=== PATIENT | female | born 1960 | race Caucasian/White ===

== ENCOUNTER 2022-10-28 10:34 | Emergency (ER) | payer MEDICAID ==
[~2022-10-28] VITALS: Ht 162.6 cm; Wt 68.0 kg
[2022-10-28 10:44] VITALS: BP 146/72; PULSE 93; RESP 18; TEMP 98.1; O2SAT 95
[2022-10-28 11:01] LABS: APPEARANCE,URINE CLEAR (CLEAR); BILIRUBIN,URINE NEGATIVE (NEGATIVE); BLOOD, URINE 3+ (NEGATIVE); COLOR,URINE YELLOW (YELLOW); LEUKOCYTE ESTERASE ,URINE 2+ (NEGATIVE); NITRITE, URINE POSITIVE (NEGATIVE); PROTEIN,URINE TRACE (NEGATIVE); UGLUCOSE NEGATIVE (NEGATIVE); UROBILINOGEN,URINE 0.2 EU/dL (0.2 - 1)
[2022-10-28 11:31] LABS: BACTERIA,URINE 10-30 (MOD) /HPF (None Seen); MUCUS,URINE None Seen /LPF (None Seen); RBC,URINE 0-5 /HPF (0-5); SQUAMOUS EPITHELIAL CELL,UR 0-3 (FEW) /LPF (0-3 (FEW)); TRICHOMONAS,URINE None Seen /HPF (None Seen); WBC,URINE 20-60 /HPF (0-5); YEAST,URINE Rare /HPF (None Seen)
[2022-10-28 11:32] LABS: WHITE BLOOD CELL CASTS,URINE None Seen /LPF (None Seen)
[2022-10-28] MEDS ORDERED: PYR100 PO (12:05)
[2022-10-28] MEDS ORDERED: CEPH-588 PO (12:05)
[2022-10-28 12:18] VITALS: BP 130/74; PULSE 89; RESP 19; TEMP 98.1; O2SAT 98
== END 2022-10-28 12:18 | disposition home or self-care (01) ==
LOC: MED 10:34
DX: N39.0 Urinary tract infection, site not specified (principal); N30.91 Cystitis, unspecified with hematuria; Z79.899 Other long term (current) drug therapy
CPT/HCPCS: 81001; 87086; 99283

== ENCOUNTER 2023-04-14 13:23 | Emergency (ER) | payer MEDICAID ==
[~2023-04-14] VITALS: Ht 162.6 cm; Wt 72.1 kg
[~2023-04-14 13:23] MED LIST: CEPH-588 PO; PYR100 PO
[2023-04-14 14:05] VITALS: BP 147/84; PULSE 83; RESP 18; TEMP 98; O2SAT 98
[2023-04-14 15:00] VITALS: BP 141/79; PULSE 68; O2SAT 98
== END 2023-04-14 15:00 | disposition home or self-care (01) ==
LOC: MED 13:23
DX: R03.0 Elevated blood-pressure reading, without diagnosis of hypertension (principal); Z79.899 Other long term (current) drug therapy
CPT/HCPCS: 93005; 99283

== ENCOUNTER 2023-07-03 13:44 | Emergency (ER) | payer MEDICAID ==
[~2023-07-03] VITALS: Ht 162.6 cm; Wt 72.6 kg
[2023-07-03 14:10] VITALS: BP 136/63; PULSE 76; RESP 18; TEMP 98.3; O2SAT 98
[2023-07-03 14:25] VITALS: BP 130/66; PULSE 76; RESP 15; TEMP 98.3; O2SAT 98
[2023-07-03] MEDS: FLUORESCEIN OPTH STRIP 1 MG OP ONE (15:09)
[2023-07-03] MEDS: TETRACAINE HCL/PF 0.5% OPTH 4 ML BTL OP ONE (15:10)
[2023-07-03] MEDS: ACETAMINOPHEN 325 MG TAB PO ONE (15:10)
[2023-07-03 16:00] VITALS: O2SAT 98
== END 2023-07-03 16:01 | disposition home or self-care (01) ==
LOC: MED 13:44
DX: H11.32 Conjunctival hemorrhage, left eye (principal); R51.9 Headache, unspecified; Z79.899 Other long term (current) drug therapy
CPT/HCPCS: 99283; 99284

== ENCOUNTER 2023-08-28 15:47 | Emergency (ER) | payer MEDICAID ==
[~2023-08-28] VITALS: Ht 154.9 cm; Wt 66.2 kg
[2023-08-28 15:53] VITALS: BP 149/69; PULSE 89; RESP 15; TEMP 98.6; O2SAT 98
[2023-08-28] MEDS: KETOROLAC 30 MG/ML VIAL IM ONE (16:48)
[2023-08-28] MEDS ORDERED: IBUP-1842 PO (17:03)
== END 2023-08-28 17:40 | disposition home or self-care (01) ==
LOC: MED 15:47
DX: M79.674 Pain in right toe(s) (principal); I10 Essential (primary) hypertension; Z79.1 Long term (current) use of non-steroidal anti-inflammatories (NSAID); Z79.899 Other long term (current) drug therapy; Z79.2 Long term (current) use of antibiotics
CPT/HCPCS: 73660; 96372; 99283; J1885

== ENCOUNTER 2023-10-11 09:18 | Emergency (ER) | payer MEDICAID ==
[~2023-10-11] VITALS: Ht 157.5 cm; Wt 72.8 kg
[~2023-10-11 09:18] MED LIST changes: +IBUP-1842 PO
[2023-10-11 09:27] VITALS: BP 147/67; PULSE 83; RESP 18; TEMP 97.7; O2SAT 97
--- NOTE | 2023-10-11 10:15 | NUR ---
PATIENT PRESENTS TO ED WITH BILATRAL EAR PAIN DISCOMFORT . PT STATES EARS ARE NOT REALLY IN PAIN BUT CAUSING DISCOMFORT . DENIES N/V/D; SKIN IS PINK/WARM/DRY; AAOX4 WITH EVEN AND STEADY GAIT; LUNGS CLEAR BL; HR EVEN AND REGULAR; PT DENIES ANY FEVER, CP, SOB, OR COUGH AT THIS TIME; PATIENT STATES PAIN OF 0/10 AT THIS TIME; VSS; PATIENT POSITIONED FOR COMFORT; HOB ELEVATED; BEDRAILS UP X2; BED DOWN. ER MD MADE AWARE OF PT STATUS.
[2023-10-11] MEDS ORDERED: IBUP-2213 PO (10:59)
[2023-10-11] MEDS ORDERED: CARB15DR72 OT (10:59)
[2023-10-11 11:04] VITALS: BP 147/67; PULSE 83; RESP 18; TEMP 97.7; O2SAT 97
--- NOTE | 2023-10-11 11:04 | NUR ---
Patient discharged with v/s stable. Written and verbal after care instructions given and explained. Patient alert, oriented and verbalized understanding of instructions. Ambulatory with steady gait. All questions addressed prior to discharge. ID band removed. Patient advised to follow up with PMD. Rx of MOTRIN, CARBAMIDE PEROXIDE EAR GTTS given. Patient educated on indication of medication including possible reaction and side effects. Opportunity to ask questions provided and answered.
== END 2023-10-11 11:04 | disposition home or self-care (01) ==
LOC: MED 09:18
DX: H61.23 Impacted cerumen, bilateral (principal); I10 Essential (primary) hypertension; Z79.899 Other long term (current) drug therapy
CPT/HCPCS: 99282

== ENCOUNTER 2023-11-25 08:56 | Emergency (ER) | payer MEDICAID ==
[~2023-11-25] VITALS: Ht 154.9 cm; Wt 71.2 kg
[~2023-11-25 08:56] MED LIST changes: +CARB15DR72 OT; +IBUP-2213 PO
[2023-11-25 09:12] VITALS: BP 140/84; PULSE 91; RESP 16; TEMP 97.1; O2SAT 98
[2023-11-25 10:15] LABS: BILIRUBIN,URINE 2+ (NEGATIVE); BLOOD, URINE 2+ (NEGATIVE); LEUKOCYTE ESTERASE ,URINE 3+ (NEGATIVE); NITRITE, URINE POSITIVE (NEGATIVE); PROTEIN,URINE 3+ (NEGATIVE); UGLUCOSE 1+ (NEGATIVE); UROBILINOGEN,URINE >=8.0 EU/dL (0.2 - 1)
[2023-11-25 10:26] LABS: APPEARANCE,URINE CLOUDY (CLEAR); COLOR,URINE ORANGE (YELLOW)
[2023-11-25] MEDS ORDERED: CEPH-588 PO (10:32)
[2023-11-25 10:43] LABS: ICTOTEST NEGATIVE (NEGATIVE)
[2023-11-25 10:44] LABS: BACTERIA,URINE 3+ /HPF (None Seen); MUCUS,URINE 2+ /LPF (None Seen); RBC,URINE 11-20 (MOD) /HPF (0-5); SQUAMOUS EPITHELIAL CELL,UR 4-10 (MOD) /LPF (0-3 (FEW)); WBC,URINE TOO MANY TO COUNT /HPF (0-5)
== END 2023-11-25 10:38 | disposition home or self-care (01) ==
LOC: MED 08:56
DX: N39.0 Urinary tract infection, site not specified (principal); I10 Essential (primary) hypertension; Z79.899 Other long term (current) drug therapy
CPT/HCPCS: 81001; 87086; 87186; 99283